=== PATIENT | female | born 1990 | race African-American/Black ===

== ENCOUNTER 2019-04-27 14:17 | Emergency (ER) | payer OTHER ==
--- NOTE | 2019-04-27 14:20 | PDOC ---
History of Present Illness - General Chief Complaint: Injury Stated Complaint: RT KNEE PAIN Time Seen by Provider: 04/27/19 14:20 History Source: Patient Exam Limitations: No Limitations - History of Present Illness Initial Comments: 04/27/19 14:38 Amada Escobar is a 28y previously healthy female presenting with R knee pain. Playing tag at 10a with kids when she fell on her R side with R knee pain. Pain on lateral side of R knee, radiates up lateral femur and down to mid tib/fib, unable to bear weight. No lower extremity numbness, parasthesias. Associated mild swelling. No head trauma or LOC. Iced and aspirin did not relieve pain. Had R knee dislocation s/p reduction more than 10yrs ago. Denies fevers, SOB, chest pain, urinary/bowel changes. Past History - Past Medical History Allergies/Adverse Reactions: Allergies Allergy/AdvReac Type Severity Reaction Status Date / Time No Known Allergies Allergy Verified 04/27/19 14:34 Home Medications: Ambulatory Orders Naproxen 500 mg PO BID 21 Days #42 tablet 04/27/19 Review of Systems - Review of Systems Constitutional: No: Chills, Fever, Malaise HEENTM: No: Eye Pain, Nose Pain, Hearing Loss, Throat Pain, Mouth Pain Respiratory: No: Cough, Shortness of Breath Cardiac (ROS): No: Chest Pain, Edema, Lightheadedness, Palpitations, Syncope ABD/GI: No: Abdominal Distended, Constipated, Diarrhea, Nausea, Vomiting : No: Burning, Dysuria, Discharge, Frequency, Flank Pain, Hematuria Musculoskeletal: Yes: Joint Pain (R knee), Joint Swelling (R knee). No: Back Pain, Muscle Pain Integumentary: No: Bruising, Change in Color, Dryness, Erythema, Flushing Neurological: No: Headache, Numbness, Seizure, Tingling, Tremors Psychiatric: No: Anxiety, Depression Endocrine: No: Excessive Sweating, Flushing Hematologic/Lymphatic: No: Anemia, Blood Clots *Physical Exam - Physical Exam General Appearance: Yes: Nourished, Appropriately Dressed, Mild Distress HEENT: positive: EOMI, WANDA, Normal Voice. negative: Pale Conjunctivae, Tonsillar Exudate, Nasal Congestion, Rhinorrhea Respiratory/Chest: positive: Lungs Clear, Normal Breath Sounds. negative: Chest Tender, Respiratory Distress, Crackles, Rales, Rhonchi, Stridor, Wheezing Cardiovascular: positive: Regular Rhythm, Regular Rate, S1, S2. negative: Edema , Murmur Extremity: positive: Other (R knee: mild swelling around patella, tender to palpation along lateral joint line, no skin avulsion/rash/ecchymosis. +2 DP pulses, normal sensation, RLE ROM limited by pain, 3/5 strength RLE, 5/5 strength LLE) Integumentary: positive: Normal Color. negative: Rash, Ecchymosis, Bruising Neurologic: positive: Fully Oriented, Alert, Normal Mood/Affect, Normal Response. negative: Confused, Disoriented Medical Decision Making - Medical Decision Making 04/27/19 14:51 R knee XR, tylenol for pain Amada Escobar is a 28y previously healthy female presenting with R knee pain after mechanical fall. Likely ligament strain or sprain based on pain localizing to lateral joint line. Good distal pulses, sensation, full ROM. Knee XR did not show fracture or dislocation. Given tylenol for pain. D/c home with naproxen and knee immobilizer, f/u with ortho *DC/Admit/Observation/Transfer Diagnosis at time of Disposition: Right knee pain Qualifiers: Chronicity: acute Qualified Code(s): M25.561 - Pain in right knee - Discharge Dispostion Disposition: HOME Condition at time of disposition: Stable Decision to Admit order: No - Prescriptions Prescriptions: Naproxen 500 mg PO BID 21 Days #42 tablet - Referrals Referrals: Trae Quevedo MD [Staff Physician] - - Patient Instructions Printed Discharge Instructions: DI for Knee Pain Additional Instructions: You were seen for right knee pain. Your x-ray did not show any bone fracture or dislocation. Ice your knee, elevate your leg, and keep your knee in the immobilizer to help with recovery. Take the prescribed medication if you continue to have pain. Please set up an appointment with Dr. Quevedo orthopedics if you continue to have knee pain and trouble walking. Come back to the ED if you have worsening pain, numbness, or trouble urinating. Print Language: PERSIAN - Post Discharge Activity
[2019-04-27] MEDS ORDERED: ACETAMINOPHEN 325 MG TABLET (FP) PO ONE (14:36)
[2019-04-27 14:47] VITALS: BP 107/69; PULSE 65; TEMP 98.3; BMI 27.4
[2019-04-27] MEDS ORDERED: ACETAMINOPHEN 325 MG TABLET (FP) ONE (14:51)
--- NOTE | 2019-04-27 14:52 | PDOC ---
Attending Attestation - Resident Resident Name: Reilly Lundy - ED Attending Attestation I have performed the following: I have examined & evaluated the patient, The case was reviewed & discussed with the resident, I agree w/resident's findings & plan, Exceptions are as noted - HPI HPI: 04/27/19 15:01 28y F no pmhx presents with R knee pain, pt was playing tag this morning, and fell on her R knee with a twisthing motion. No head injury. no other injuries, head ache, neck pain,ba ck pain. Pain is worse in the lateral aspect of R knee and radaites up tht e lateral aspec of the thgh. No associated numbnest/ingling/ weakness. pt notse the pain is so severe she can't walk. pt took a motrin earlier without improvement. exam: RLE: normal flexion/extension of R hip, mild diffuse ttp to R knee/patella. able to range her kne approx 30 degrees passively withotu discomfort. no ttp on femur, tibial plateeu, no ttp on tib/fib/ankle, neg anteior/posterior drawer, mild knee ale with interional rotation of L, knee flexion/extesnion limited due to pain (able to passively flex approx 30 degrees) LLE: normal ROM, no focal ttp BACK: no focal bony ttp on cervical/thoracic/lumbar spine. xray to ro knee/ptella fx tylenol for pain 04/27/19 16:09 xray neg will give pt knee immobilizer fu with ortho return percautions were dsicsused - Physicial Exam PE: 04/27/19 16:58 felipa watson - Medical Decision Making 04/27/19 16:58 see above
== END 2019-04-27 16:19 | disposition home or self-care (01) ==
LOC: MERGE 14:17 → FER 14:17
DX: M25.561 Pain in right knee (principal); W18.39XA Other fall on same level, initial encounter; Y93.89 Activity, other specified; Y92.89 Other specified places as the place of occurrence of the external cause
CPT/HCPCS: 73562-TC-RT-FY; 99282-25